=== PATIENT | male | born 1960 | race Caucasian/White ===

== ENCOUNTER → 2018-11-08 | Outpatient (CLI) | payer BC ==
[~2018-11-08] MED LIST: ASPIRIN EC325 M1 PO; B COMPLEX-VITA1 EACH; B-100 COMPLEX1 EAC1 PO; BENICAR 20 MG PO; CARDIZEM CD120 MG PO; COENZYME Q1060 MG PO; FISH OIL SOFTG1 EACH PO; MULTIVITAMINS PO; MULTIVITAMINS1 EAC7; NOHOMEMEDICATIONS; TOPROL 25 MG PO; [UNRECOGNIZED DRUG - OTHER]
== END ==
LOC: RAD 07:16
DX: G47.33 Obstructive sleep apnea (adult) (pediatric) (principal)